=== PATIENT | male | born 1950 | race Caucasian/White ===

== ENCOUNTER 2017-10-03 14:45 | Emergency (ER) | payer MEDICARE, MEDICAID, OTHER | END 2017-10-03 16:30 | disposition home or self-care (01) | LOC: E/R 14:45 | DX: S29.011A Strain of muscle and tendon of front wall of thorax, initial encounter (principal); R40.2412 Glasgow coma scale score 13-15, at arrival to emergency department; X58.XXXA Exposure to other specified factors, initial encounter; Y92.9 Unspecified place or not applicable | CPT/HCPCS: 99283 ==

== ENCOUNTER 2018-04-17 23:59 | Emergency (ER) | payer OTHER, MEDICAID, MEDICARE ==
[2018-04-18 02:34] LABS: ADD MAN DIFF? NO
[2018-04-18 02:35] LABS: WHITE BLOOD COUNT 8.5 10^3/ul (4.8-10.8)
[2018-04-18 02:35] LABS: BASOPHIL # 0.1 10^3/ul (0.0-0.1); BASOPHILS % 0.7 % (0.0-2.0); EOSINOPHILS # 0.2 10^3/ul (0.0-0.5); EOSINOPHILS % 1.9 % (0.0-7.0); HEMATOCRIT 46.8 % (42.0-52.0); HEMOGLOBIN 16.4 g/dl (14.0-18.0); LYMPHOCYTES # 1.8 10^3/ul (0.8-2.9); LYMPHOCYTES % 21.2 % (15.0-51.0); MEAN CORPUSCULAR HEMOGLOBIN 32.9 pg (29.0-33.0); MEAN PLATELET VOLUME 10.8 fl (7.4-10.4); MONOCYTES % 12.2 % (0.0-11.0); NEUTROPHIL # 5.4 10^3/ul (1.6-7.5); NEUTROPHILS % 63.8 % (39.0-77.0); PLATELET COUNT 212 10^3/UL (140-415); RED BLOOD COUNT 4.98 10^6/ul (4.70-6.10); RED CELL DISTRIBUTION WIDTH 11.7 % (11.5-14.5)
[2018-04-18] MEDS: ONDANSETRON 4 MG INJ IV (02:38)
[2018-04-18] MEDS: SOD CHLORIDE 0.9% 500 ML IV (02:38)
[2018-04-18] MEDS: MECLIZINE 12.5 MG TAB PO (02:38)
[2018-04-18 02:54] LABS: INR 0.96; PROTIME 12.9 Sec (11.9-14.9)
[2018-04-18 02:55] LABS: PARTIAL THROMBOPLASTIN TIME 28.4 Sec (23.0-35.0)
[2018-04-18 02:59] LABS: ANION GAP 6 (5-13); BLOOD UREA NITROGEN 9 mg/dl (7-20); CALCIUM 9.7 mg/dl (8.4-10.2); CARBON DIOXIDE 30 mmol/L (21-31); CHLORIDE 106 mmol/L (97-110); CREATININE 0.89 mg/dl (0.61-1.24); Estimated GFR > 60 mL/min (>60); GLUCOSE 113 mg/dl (70-220); POTASSIUM 4.5 mmol/L (3.5-5.1); SODIUM 142 mmol/L (135-144)
[2018-04-18 03:11] LABS: TROPONIN-I < 0.012 ng/ml (0.000-0.120)
== END 2018-04-18 05:22 | disposition home or self-care (01) ==
LOC: E/R 23:59
DX: R42 Dizziness and giddiness (principal); R07.9 Chest pain, unspecified
CPT/HCPCS: 36415; 70450; 71045; 80048; 84484; 85025; 85610; 85730; 93005; 96374; 99285-25

== ENCOUNTER 2018-05-23 09:35 | Day surgery (SDC) | payer OTHER ==
[2018-05-23] MEDS ORDERED: LIDOCAINE 2% (SDV) 5 ML INJ INJ (09:36)
[2018-05-23] MEDS ORDERED: PROPOFOL 20 ML (11:01)
== END 2018-05-23 11:54 | disposition home or self-care (01) ==
LOC: GIL 09:35
DX: K21.9 Gastro-esophageal reflux disease without esophagitis (principal); K29.60 Other gastritis without bleeding; I10 Essential (primary) hypertension; E78.5 Hyperlipidemia, unspecified
CPT/HCPCS: 43239; 88305